=== PATIENT | female | born 1950 | race Caucasian/White ===

== ENCOUNTER 2017-09-21 11:32 | Emergency (ER) | payer MEDICARE, OTHER ==
[~2017-09-21] VITALS: Ht 154.9 cm; Wt 85.7 kg
[~2017-09-21 11:32] MED LIST changes: -Bactrim 400-801 EACH PO; -CEPH500 PO
[2017-09-21 12:48] LABS: BASOPHILS ABSOLUTE AUTO 0.01 K/mm3 (0.00-0.23); BASOPHILS PERCENT AUTO 0 % (0-2); EOSINOPHILS PERCENT AUTO 0 % (0-6); Hematocrit 43.7 % (33.0-51.0); Hemoglobin 15.1 g/dL (11.5-16.0); IMMATURE GRAN ABSOLUTE AUTO 0.02 K/mm3 (0.00-0.10); IMMATURE GRAN PERCENT AUTO 0 % (0-1); LYMPHOCYTES ABSOLUTE AUTO 1.12 K/mm3 (0.84-5.20); LYMPHOCYTES PERCENT AUTO 17 % (21-46); MONOCYTES ABSOLUTE AUTO 0.46 K/mm3 (0.16-1.47); MONOCYTES PERCENT AUTO 7 % (4-13); Mean Corpuscular HGB 29.6 pg (26.0-34.0); Mean Corpuscular HGB Conc 34.6 g/dL (31.5-36.5); Mean Corpuscular Volume 86 fL (80-100); Mean Platelet Volume 9.8 fL (9.1-12.4); NEUTROPHILS ABSOLUTE AUTO 5.07 K/mm3 (1.96-9.15); NEUTROPHILS PERCENT AUTO 76 % (41-73); Platelet Count 180 K/mm3 (150-400); RDW Coefficient Variation 11.9 % (11.7-14.2); RDW Standard Deviation 37.2 fL (35.1-46.3); White Blood Cell Count 6.68 K/mm3 (4.00-11.30)
[2017-09-21 13:01] LABS: Anion Gap 4 mmol/L (6-16); Blood Urea Nitrogen 8 mg/dL (8-24); CO2, Blood 28 mmol/L (21-32); Calcium, Blood 8.8 mg/dL (8.5-10.1); Chloride, Blood 110 mmol/L (98-108); Glomerular Filtration Rate >60 (60-); Glucose, Blood 107 mg/dL (70-99); Potassium, Blood 3.6 mmol/L (3.5-5.5); Sodium, Blood 142 mmol/L (136-145)
[2017-09-21] MEDS ORDERED: Bactrim 400-801 EACH PO (14:27)
[2017-09-21] MEDS ORDERED: CEPH500 PO (14:27)
== END 2017-09-21 14:37 | disposition home or self-care (01) ==
LOC: ER 11:32
PROVIDERS: Emergency Medicine
DX: T85.79XA Infection and inflammatory reaction due to other internal prosthetic devices, implants and grafts, initial encounter (principal); L08.89 Other specified local infections of the skin and subcutaneous tissue; Z79.899 Other long term (current) drug therapy
CPT/HCPCS: 36415; 70480; 80048; 85025; 85651; 99284

== ENCOUNTER → 2017-09-21 | Outpatient (CLI) | payer MEDICARE, OTHER ==
[~2017-09-21] MED LIST: AMIT25 PO; Bactrim 400-801 EACH PO; CALCIUM; CEPH500 PO; CETI10 PO; ESTR1 PO; FLUT.05NI; LISHYD2012 PO; MULVITA PO; SIME40L PO; VIT D
== END ==
LOC: LAB SHORT 13:16 → LAB EV 13:16
DX: B99.9 Unspecified infectious disease (principal)
CPT/HCPCS: 87070; 87205

== ENCOUNTER → 2018-06-22 | Outpatient (CLI) | payer MEDICARE, OTHER ==
[~2018-06-22] MED LIST changes: +Bactrim 400-801 EACH PO; +CEPH500 PO
== END ==
LOC: LAB SHORT 17:54 → LAB EV 17:54
DX: N39.0 Urinary tract infection, site not specified (principal)
CPT/HCPCS: 87077; 87086; 87186

== ENCOUNTER 2018-12-25 09:39 | Day surgery (SDC) | payer MEDICARE, OTHER ==
[~2018-12-25] VITALS: Ht 154.9 cm; Wt 92.5 kg
[~2018-12-25 09:39] MED LIST changes: +ATOR20 PO; +Benicar Hct 201 EACH PO; +DONE10 PO; +SOLI5 PO; +VENLAFAXINE HCL75 MG PO
--- NOTE | 2018-12-25 10:10 | NUR ---
History, Chart, Medications and Allergies reviewed before start of procedure. Patient confirms NPO status and agrees with scheduled surgery. , Mukesh Jimenez, at bedside. Patient is a poor historian. answers most questions for patient. to drive home.
--- NOTE | 2018-12-25 10:12 | NUR ---
reports patient taking all of colon prep with clear results.
--- NOTE | 2018-12-25 10:49 | NUR ---
12/25/18 1049 Bessie Golden History, Chart, Medications and Allergies reviewed before start of procedure.PATIENT DETERMINED TO BE ASA APPROPRIATE FOR PROPOFOL SEDATION PRIOR TO START OF PROCEDURE BY .MONITOR INTACT WITH CONTINUOUS PULSE OXIMETRY AND INTERMITTENT BP.3-LEAD EKG REVIEWED WITH PHYSICIAN PRIOR TO START OF PROCEDURE.O2 VIA N/C INTACT THROUGHOUT SEDATION/PROCEDURE.
--- NOTE | 2018-12-25 11:46 | NUR ---
Patient up to Ambulate independently. Gait steady. Discharge instructions reviewed with patient. Patient verbalizes understanding. Copy given to patient to take home. Patient States Post-Procedure ride home has been arranged. Discharged via wheelchair to private car for ride home.
== END 2018-12-25 22:41 | disposition home or self-care (01) ==
LOC: ORSCMMR 09:39 → ORD 10:30 → ORSCMMR 22:41
PROVIDERS: Internal Medicine Gastroenterology
PROC: 0DBL8ZX Excision of Transverse Colon, Via Natural or Artificial Opening Endoscopic, Diagnostic (ICD-10-PCS; principal; 2018-12-25 10:30)
PROC: 0DBP8ZX Excision of Rectum, Via Natural or Artificial Opening Endoscopic, Diagnostic (ICD-10-PCS; principal; 2018-12-25 10:30)
PROC: 0DBH8ZX Excision of Cecum, Via Natural or Artificial Opening Endoscopic, Diagnostic (ICD-10-PCS; principal; 2018-12-25 10:30)
PROC: 0DBK8ZX Excision of Ascending Colon, Via Natural or Artificial Opening Endoscopic, Diagnostic (ICD-10-PCS; principal; 2018-12-25 10:30)
DX: Z12.11 Encounter for screening for malignant neoplasm of colon (principal); D12.2 Benign neoplasm of ascending colon; D12.0 Benign neoplasm of cecum; D12.3 Benign neoplasm of transverse colon; D12.8 Benign neoplasm of rectum; K63.89 Other specified diseases of intestine; I10 Essential (primary) hypertension; E78.00 Pure hypercholesterolemia, unspecified; F03.90 Unspecified dementia, unspecified severity, without behavioral disturbance, psychotic disturbance, mood disturbance, and anxiety; Z79.899 Other long term (current) drug therapy
CPT/HCPCS: 88305; J2704; J7120

== ENCOUNTER → 2020-02-05 | Outpatient (CLI) | payer MEDICARE, OTHER | LOC: LAB SHORT 18:07 → LAB EV 18:07 | DX: N39.0 Urinary tract infection, site not specified (principal) | CPT/HCPCS: 87077; 87086; 87186 ==

== ENCOUNTER 2020-09-25 16:23 | Emergency (ER) | payer MEDICARE ==
[~2020-09-25] VITALS: Ht 154.9 cm; Wt 85.7 kg
[2020-09-25 17:19] LABS: BASOPHILS PERCENT AUTO 0 % (0-2); EOSINOPHILS ABSOLUTE AUTO 0.02 K/mm3 (0.00-0.68); EOSINOPHILS PERCENT AUTO 0 % (0-6); Hemoglobin 15.3 g/dL (11.5-16.0); IMMATURE GRAN ABSOLUTE AUTO 0.01 K/mm3 (0.00-0.10); IMMATURE GRAN PERCENT AUTO 0 % (0-1); LYMPHOCYTES ABSOLUTE AUTO 0.91 K/mm3 (0.84-5.20); LYMPHOCYTES PERCENT AUTO 16 % (21-46); MONOCYTES ABSOLUTE AUTO 0.56 K/mm3 (0.16-1.47); MONOCYTES PERCENT AUTO 10 % (4-13); Mean Corpuscular HGB 30.5 pg (26.0-34.0); Mean Corpuscular Volume 90 fL (80-100); Mean Platelet Volume 10.3 fL (9.1-12.4); NEUTROPHILS ABSOLUTE AUTO 4.13 K/mm3 (1.96-9.15); NEUTROPHILS PERCENT AUTO 73 % (41-73); Platelet Count 153 K/mm3 (150-400); RDW Coefficient Variation 12.5 % (11.7-14.2); RDW Standard Deviation 40.9 fL (35.1-46.3); Red Blood Cell Count 5.02 M/mm3 (3.80-5.20); White Blood Cell Count 5.63 K/mm3 (4.00-11.30)
[2020-09-25 17:56] LABS: Albumin, Blood 4.2 g/dL (3.4-5.0); Albumin/Globulin Ratio 1.5 (0.8-1.8); Bilirubin, Total 0.7 mg/dL (0.1-1.0); Bun/Creatinine Ratio 16.1 (12.0-20.0); Calcium, Blood 9.6 mg/dL (8.5-10.1); Creatinine, Blood 1.18 mg/dL (0.40-1.00); Globulin, Blood 2.8 g/dL (2.2-4.0)
[2020-09-25] MEDS ORDERED: CEPHALEXIN500 M2 PO (19:54)
== END 2020-09-25 20:07 | disposition home or self-care (01) ==
LOC: ER 16:23
PROVIDERS: Physician Assistant
DX: L03.811 Cellulitis of head [any part, except face] (principal); I10 Essential (primary) hypertension; E78.00 Pure hypercholesterolemia, unspecified; Z79.899 Other long term (current) drug therapy
CPT/HCPCS: 36415; 70487; 80053; 85025; 99283-25; A9270-GY; Q9967

== ENCOUNTER → 2020-12-03 | Outpatient (CLI) | payer MEDICARE ==
[~2020-12-03] MED LIST changes: +CEPHALEXIN500 M2 PO
[2020-12-03 14:43] LABS: Appearance, Urine Clear (Clear); Bacteria Not Seen /hpf; Bilirubin, Urine Neg (Neg); Blood, Urine Trace (Neg); Color, Urine Yellow (P-Yellow); Glucose Qualitative, Urine Neg (Normal); Ketones, Urine Neg (Neg); Leukocyte Esterase, Urine Trace (Neg); Nitrite, Urine Neg (Neg); Protein, Urine Neg (Neg); Red Blood Cells, Urine Rare /hpf (0-2); Squamous Epithelial Cells Few /hpf (Few); Urobilinogen, Urine NORM (Normal); White Blood Cells, Urine Rare /hpf (0-5)
== END ==
LOC: LAB 14:24 → LAB SHORT 14:24
PROVIDERS: Physician Assistant
DX: R10.9 Unspecified abdominal pain (principal)
CPT/HCPCS: 81001; 87077; 87086; 87186

== ENCOUNTER → 2020-12-05 | Outpatient (CLI) | payer MEDICARE ==
[2020-12-05 13:46] LABS: Microalbumin, Urine Quant. 9.21 mg/L (0.000-20.000); Protein, Urine Quantitative 6.3 mg/dL (0.0-11.9)
== END | disposition home or self-care (01) ==
LOC: LAB SHORT 11:15 → LAB 11:15 → LAB FUT 11-27 08:45
PROVIDERS: Internal Medicine Nephrology
DX: N18.30 Chronic kidney disease, stage 3 unspecified (principal); D63.1 Anemia in chronic kidney disease; N25.81 Secondary hyperparathyroidism of renal origin; E55.9 Vitamin D deficiency, unspecified; E78.00 Pure hypercholesterolemia, unspecified; G60.9 Hereditary and idiopathic neuropathy, unspecified; R76.9 Abnormal immunological finding in serum, unspecified; R94.5 Abnormal results of liver function studies
CPT/HCPCS: 81050; 82043; 82570; 84156

== ENCOUNTER 2022-05-19 15:51 | Observation (INO) | payer MEDICARE, OTHER ==
[~2022-05-19] VITALS: Ht 162.6 cm; Wt 90.5 kg
[2022-05-19 17:00] LABS: BASOPHILS ABSOLUTE AUTO 0.02 K/mm3 (0.00-0.23); BASOPHILS PERCENT AUTO 0 % (0-2); EOSINOPHILS PERCENT AUTO 0 % (0-6); Hematocrit 45.1 % (33.0-51.0); Hemoglobin 15.7 g/dL (11.5-16.0); IMMATURE GRAN ABSOLUTE AUTO 0.06 K/mm3 (0.00-0.10); IMMATURE GRAN PERCENT AUTO 1 % (0-1); LYMPHOCYTES ABSOLUTE AUTO 0.18 K/mm3 (0.84-5.20); LYMPHOCYTES PERCENT AUTO 3 % (21-46); MONOCYTES ABSOLUTE AUTO 0.04 K/mm3 (0.16-1.47); MONOCYTES PERCENT AUTO 1 % (4-13); Mean Corpuscular HGB 30.9 pg (26.0-34.0); Mean Corpuscular HGB Conc 34.8 g/dL (31.5-36.5); Mean Corpuscular Volume 89 fL (80-100); Mean Platelet Volume 10.5 fL (9.1-12.4); NEUTROPHILS ABSOLUTE AUTO 6.85 K/mm3 (1.96-9.15); NEUTROPHILS PERCENT AUTO 96 % (41-73); Platelet Count 113 K/mm3 (150-400); RDW Coefficient Variation 12.3 % (11.7-14.2); RDW Standard Deviation 39.8 fL (35.1-46.3); Red Blood Cell Count 5.08 M/mm3 (3.80-5.20); White Blood Cell Count 7.15 K/mm3 (4.00-11.30)
[2022-05-19 17:18] LABS: Albumin/Globulin Ratio 1.4 (0.8-1.8); Bilirubin, Total 1.3 mg/dL (0.1-1.0); Bun/Creatinine Ratio 17.2 (12.0-20.0); Calcium, Blood 10.2 mg/dL (8.5-10.1); Creatinine, Blood 1.28 mg/dL (0.40-1.00); Globulin, Blood 2.9 g/dL (2.2-4.0); Potassium, Blood 3.6 mmol/L (3.5-5.5); Total Protein, Blood 6.9 g/dL (6.4-8.2)
[2022-05-19 23:15] LABS: Source, Urine Clean Catch
[2022-05-19 23:30] LABS: Bilirubin, Urine Neg (Neg); Blood, Urine 5+ (Neg); Color, Urine Yellow (P-Yellow); Glucose Qualitative, Urine Neg (Neg); Ketones, Urine Neg (Neg); Leukocyte Esterase, Urine 1+ (Neg); Nitrite, Urine Pos (Neg); Protein, Urine 1+ (Neg); Urobilinogen, Urine NORM (Normal)
[2022-05-19 23:52] LABS: Appearance, Urine Hazy (Clear)
[2022-05-19 23:54] LABS: Bacteria Many /hpf; Squamous Epithelial Cells Mod /hpf (Few)
[2022-05-20 05:42] LABS: Hematocrit 38.4 % (33.0-51.0); Hemoglobin 13.1 g/dL (11.5-16.0); Mean Corpuscular HGB 30.6 pg (26.0-34.0); Mean Corpuscular HGB Conc 34.1 g/dL (31.5-36.5); Mean Corpuscular Volume 90 fL (80-100); Mean Platelet Volume 10.1 fL (9.1-12.4); Platelet Count 90 K/mm3 (150-400); RDW Coefficient Variation 12.6 % (11.7-14.2); RDW Standard Deviation 41.1 fL (35.1-46.3); Red Blood Cell Count 4.28 M/mm3 (3.80-5.20); White Blood Cell Count 18.62 K/mm3 (4.00-11.30)
[2022-05-20 06:10] LABS: Albumin, Blood 3.2 g/dL (3.4-5.0); Albumin/Globulin Ratio 1.2 (0.8-1.8); Bilirubin, Total 1.2 mg/dL (0.1-1.0); Bun/Creatinine Ratio 22.3 (12.0-20.0); Calcium, Blood 8.6 mg/dL (8.5-10.1); Creatinine, Blood 1.12 mg/dL (0.40-1.00); Globulin, Blood 2.6 g/dL (2.2-4.0); Potassium, Blood 3.8 mmol/L (3.5-5.5); Total Protein, Blood 5.8 g/dL (6.4-8.2)
--- NOTE | 2022-05-20 07:28 | NUR ---
Rn summary: Patient is alert and oriented to self, , thought she was in a hospital in [place], did not know the president, or the month. Pt follows commands and is very pleasant. Patient is NPO at this time. Pt has been up to the BR x1. IV fluids as ordered. Pt has been resting well since admission. Bed alarm is on, call light explained and in reach.
[2022-05-20] MEDS ORDERED: Aspir 8181 MG PO (18:14)
[2022-05-20] MEDS ORDERED: MYRBETRIQ25 MG PO (18:14)
[2022-05-20] MEDS ORDERED: OLMESARTAN PO (18:17)
[2022-05-20] MEDS ORDERED: HYDROCHLOROTHIAZIDE PO (18:17)
--- NOTE | 2022-05-20 18:44 | NUR ---
SHIFT SUMMARY PATIENT MEDICATED X1 FOR ABDOMINAL PAIN, DENIES NAUSEA, AND SHORTNESS OF BREATH. NPO. MRCP/MRI PENDING UNTIL RECORDS OF COCHLEAR IMPLANT RECEIVED FROM [facility]. RECORD REQUEST FAXED TODAY. UP SBA TO BATHROOM. IMPULSIVE AND FORGETFUL AT TIMES. BED ALARM ON. FAMILY AT BEDSIDE MOST OF DAY. PLEASANT AND COOPERATIVE WITH CARE.
[2022-05-21 05:06] LABS: BASOPHILS ABSOLUTE AUTO 0.01 K/mm3 (0.00-0.23); BASOPHILS PERCENT AUTO 0 % (0-2); EOSINOPHILS PERCENT AUTO 0 % (0-6); Hematocrit 35.8 % (33.0-51.0); Hemoglobin 12.4 g/dL (11.5-16.0); IMMATURE GRAN ABSOLUTE AUTO 0.23 K/mm3 (0.00-0.10); IMMATURE GRAN PERCENT AUTO 2 % (0-1); LYMPHOCYTES ABSOLUTE AUTO 0.63 K/mm3 (0.84-5.20); LYMPHOCYTES PERCENT AUTO 6 % (21-46); MONOCYTES ABSOLUTE AUTO 0.55 K/mm3 (0.16-1.47); MONOCYTES PERCENT AUTO 5 % (4-13); Mean Corpuscular HGB 30.9 pg (26.0-34.0); Mean Corpuscular HGB Conc 34.6 g/dL (31.5-36.5); Mean Corpuscular Volume 89 fL (80-100); Mean Platelet Volume 10.4 fL (9.1-12.4); NEUTROPHILS ABSOLUTE AUTO 8.85 K/mm3 (1.96-9.15); NEUTROPHILS PERCENT AUTO 86 % (41-73); Platelet Count 69 K/mm3 (150-400); RDW Coefficient Variation 12.5 % (11.7-14.2); RDW Standard Deviation 41.1 fL (35.1-46.3); Red Blood Cell Count 4.01 M/mm3 (3.80-5.20); White Blood Cell Count 10.27 K/mm3 (4.00-11.30)
--- NOTE | 2022-05-21 05:09 | NUR ---
Shift Summary No C/O abdominal pain, when asked pt said pain was there but a mild 3/10. No N/V. Pt is NPO pending surgical consult for today. Suspected obstruction of common bile duct. Pt is very forgetful, frequently forgetting who I am and where she is. While awake she is very cognizant and converses well, but she does soon forget almost everything shortly after a conversation. During the night she awoke and took out her left forearm IV thinking it was a bandage. Pt is a strong ambulator and walks to the bathroom. She does not call appropriatly because she forgets where she is. Bed alarm on. Pt started recieving IV Zosyn tonight, tolerated well. VSS, no acute events, pleasant and cooperative with care.
[2022-05-21 05:24] LABS: Albumin, Blood 2.9 g/dL (3.4-5.0); Albumin/Globulin Ratio 1.1 (0.8-1.8); Bilirubin, Total 1.8 mg/dL (0.1-1.0); Bun/Creatinine Ratio 19.3 (12.0-20.0); Calcium, Blood 8.1 mg/dL (8.5-10.1); Creatinine, Blood 0.99 mg/dL (0.40-1.00); Globulin, Blood 2.7 g/dL (2.2-4.0); Potassium, Blood 3.4 mmol/L (3.5-5.5); Total Protein, Blood 5.6 g/dL (6.4-8.2)
--- NOTE | 2022-05-21 18:54 | NUR ---
SHIFT SUMMARY: PT A&O X3, FORGETFUL, EASILY OREINTATED. PT NPO RECEVING NS 75ML/HR. PT HAD MRI COMPLETED. PT CLEAR LIQUID DIET AND ADVANCE TOLERATED. PT AMBULATES TO THE BATHROOM SBA WITH DIRECTION FOR SAFETY. PT FAMILY AT BEDSIDE THROUGHOUT THE SHIFT. PT HAD NO COMPLAINTS OF PAIN THROUGHOUT THE SHIFT JUST FREQUENT URINATION. PT IN BED WITH CALL LIGHT WITHIN REACH AND BED ALARM SET.
[2022-05-22 05:51] LABS: BASOPHILS ABSOLUTE AUTO 0.01 K/mm3 (0.00-0.23); BASOPHILS PERCENT AUTO 0 % (0-2); EOSINOPHILS PERCENT AUTO 0 % (0-6); Hematocrit 33.9 % (33.0-51.0); Hemoglobin 11.9 g/dL (11.5-16.0); IMMATURE GRAN ABSOLUTE AUTO 0.11 K/mm3 (0.00-0.10); IMMATURE GRAN PERCENT AUTO 1 % (0-1); LYMPHOCYTES ABSOLUTE AUTO 0.67 K/mm3 (0.84-5.20); LYMPHOCYTES PERCENT AUTO 8 % (21-46); MONOCYTES ABSOLUTE AUTO 0.46 K/mm3 (0.16-1.47); MONOCYTES PERCENT AUTO 5 % (4-13); Mean Corpuscular HGB 30.7 pg (26.0-34.0); Mean Corpuscular HGB Conc 35.1 g/dL (31.5-36.5); Mean Corpuscular Volume 87 fL (80-100); Mean Platelet Volume 10.1 fL (9.1-12.4); NEUTROPHILS PERCENT AUTO 86 % (41-73); Platelet Count 74 K/mm3 (150-400); RDW Coefficient Variation 12.3 % (11.7-14.2); RDW Standard Deviation 39.4 fL (35.1-46.3); Red Blood Cell Count 3.88 M/mm3 (3.80-5.20); White Blood Cell Count 8.95 K/mm3 (4.00-11.30)
[2022-05-22 06:17] LABS: Albumin, Blood 2.7 g/dL (3.4-5.0); Albumin/Globulin Ratio 0.9 (0.8-1.8); Bilirubin, Total 1.4 mg/dL (0.1-1.0); Bun/Creatinine Ratio 11.9 (12.0-20.0); Calcium, Blood 8.3 mg/dL (8.5-10.1); Creatinine, Blood 0.93 mg/dL (0.40-1.00); Potassium, Blood 3.2 mmol/L (3.5-5.5); Total Protein, Blood 5.7 g/dL (6.4-8.2)
--- NOTE | 2022-05-22 07:47 | NUR ---
Shift Summary Pt extremely forgetful upon waking, forgetting where she is and why she is here. Removed her tele box multiple times, called hospitalist and Dr. Paredes D/Elvira tele. Pt removed her IV and a new one was placed in her LFA. Rcvd IV Zosyn and NS at 75. Gave 25 mg PRN Seroquil which did not help, the next time pt awoke to use the bathroom she was more confused, angry and irratible. VSS, no acute events.
[2022-05-22] MEDS ORDERED: OLMESARTAN-HCT1 EAC3 PO (11:43)
[2022-05-22] MEDS ORDERED: Cefpodoxime Pr100 MG PO (13:13)
--- NOTE | 2022-05-22 17:07 | NUR ---
DISCHARGE NOTE: PT A&O X3, PLEASANTLY CONFUSED AND FOLLOWS DIRECTIONS. PT FAMILY EDUCATED ON ABX MEDICATION AND FOLLOWING UP WITH PCP. PT FAMILY AT BEDSIDE AND ABLE TO TRANSPORT PT HOME. PT DRESSED BY ROSA MARIA PEÑA. PT ESCORTED BY [employer]ACHINE OPERATOR VIA WC TO LOBBY WITH FAMILY.
== END 2022-05-22 14:15 | disposition home or self-care (01) ==
LOC: ER 15:51 → ERHOLD 15:52 → MEDS 15:52
PROVIDERS: Family Medicine; Physician Assistant; ADMIT Internal Medicine
DX: R10.9 Unspecified abdominal pain (principal); N39.0 Urinary tract infection, site not specified; B96.1 Klebsiella pneumoniae [K. pneumoniae] as the cause of diseases classified elsewhere; K83.8 Other specified diseases of biliary tract; K57.10 Diverticulosis of small intestine without perforation or abscess without bleeding; N18.30 Chronic kidney disease, stage 3 unspecified; E78.00 Pure hypercholesterolemia, unspecified; N39.41 Urge incontinence; M17.0 Bilateral primary osteoarthritis of knee; M85.80 Other specified disorders of bone density and structure, unspecified site; F32.A Depression, unspecified; I12.9 Hypertensive chronic kidney disease with stage 1 through stage 4 chronic kidney disease, or unspecified chronic kidney disease; F03.90 Unspecified dementia, unspecified severity, without behavioral disturbance, psychotic disturbance, mood disturbance, and anxiety; E87.20 Acidosis, unspecified; D69.6 Thrombocytopenia, unspecified; N17.9 Acute kidney failure, unspecified; Z96.651 Presence of right artificial knee joint; Z72.0 Tobacco use
CPT/HCPCS: 36415; 36416; 74177; 74181; 80053; 81001; 82140; 83605; 83690; 85025; 85027; 87077; 87086; 87186; 96361; 96365; 96366; 96372; 96375; 96376; A9270; G0378; J1650; J2543; J3010; J7030; Q9967

== ENCOUNTER 2022-12-17 06:38 | Day surgery (SDC) | payer MEDICARE, OTHER ==
[~2022-12-17] VITALS: Ht 157.5 cm; Wt 87.3 kg
[~2022-12-17 06:38] MED LIST changes: +Aspir 8181 MG PO; +Cefpodoxime Pr100 MG PO; +HYDROCHLOROTHIAZIDE PO; +MYRBETRIQ25 MG PO; +OLMESARTAN PO; +OLMESARTAN-HCT1 EAC3 PO; +VITAMIN D310 MC4 PO
[2022-12-17 08:24] LABS: BASOPHILS ABSOLUTE AUTO 0.01 K/mm3 (0.00-0.23); BASOPHILS PERCENT AUTO 0 % (0-2); EOSINOPHILS ABSOLUTE AUTO 0.01 K/mm3 (0.00-0.68); EOSINOPHILS PERCENT AUTO 0 % (0-6); Hematocrit 46.7 % (33.0-51.0); Hemoglobin 16.1 g/dL (11.5-16.0); IMMATURE GRAN ABSOLUTE AUTO 0.02 K/mm3 (0.00-0.10); IMMATURE GRAN PERCENT AUTO 0 % (0-1); LYMPHOCYTES ABSOLUTE AUTO 0.88 K/mm3 (0.84-5.20); LYMPHOCYTES PERCENT AUTO 13 % (21-46); MONOCYTES ABSOLUTE AUTO 0.53 K/mm3 (0.16-1.47); MONOCYTES PERCENT AUTO 8 % (4-13); Mean Corpuscular HGB 30.7 pg (26.0-34.0); Mean Corpuscular HGB Conc 34.5 g/dL (31.5-36.5); Mean Corpuscular Volume 89 fL (80-100); Mean Platelet Volume 9.8 fL (9.1-12.4); NEUTROPHILS ABSOLUTE AUTO 5.17 K/mm3 (1.96-9.15); NEUTROPHILS PERCENT AUTO 78 % (41-73); Platelet Count 158 K/mm3 (150-400); RDW Coefficient Variation 12.5 % (11.7-14.2); RDW Standard Deviation 41.1 fL (35.1-46.3); Red Blood Cell Count 5.24 M/mm3 (3.80-5.20); White Blood Cell Count 6.62 K/mm3 (4.00-11.30)
--- NOTE | 2022-12-17 08:40 | NUR ---
12/17/[address] AWARE OF PT C/O CHEST PAIN OFF /ON OVER PAST FEW DAYS. EGC GIVEN AND DR BENITES AND DR OCHOA SAID OK TO PROCEDE. NO NEW ORDERS GIVEN.
[2022-12-17 10:00] VITALS: BP 113/60
--- NOTE | 2022-12-17 10:39 | NUR ---
12/17/22 1039 BEATRIZ BRUCE PT USING BATHROOOM PRIOR TO DC PT AWAKE and ABLE TO MOVE W/O ISSUES
== END 2022-12-17 10:39 | disposition home or self-care (01) ==
LOC: ORSCSDS 06:38
PROVIDERS: Surgery
PROC: 0HBT0ZX Excision of Right Breast, Open Approach, Diagnostic (ICD-10-PCS; principal; 2022-12-17 08:45)
DX: C50.411 Malignant neoplasm of upper-outer quadrant of right female breast (principal); I25.10 Atherosclerotic heart disease of native coronary artery without angina pectoris; E78.5 Hyperlipidemia, unspecified; G47.33 Obstructive sleep apnea (adult) (pediatric); I12.9 Hypertensive chronic kidney disease with stage 1 through stage 4 chronic kidney disease, or unspecified chronic kidney disease; N18.30 Chronic kidney disease, stage 3 unspecified; E03.9 Hypothyroidism, unspecified; F03.B0 Unspecified dementia, moderate, without behavioral disturbance, psychotic disturbance, mood disturbance, and anxiety; Z79.899 Other long term (current) drug therapy; Z79.82 Long term (current) use of aspirin
CPT/HCPCS: 85025; 88307; J0690; J1100; J2371; J2405; J2704; J2795; J3010; J7120; Q9968

== ENCOUNTER → 2023-03-30 | Outpatient (CLI) | payer MEDICARE, OTHER | END | disposition home or self-care (01) | LOC: LAB 14:00 → LAB SHORT 14:00 | DX: L03.90 Cellulitis, unspecified (principal) | CPT/HCPCS: 87070; 87205 ==

== ENCOUNTER 2023-10-04 19:27 | Emergency (ER) | payer MEDICARE, OTHER ==
[~2023-10-04] VITALS: Ht 160 cm; Wt 85.3 kg
[2023-10-04 20:24] LABS: BASOPHILS ABSOLUTE AUTO 0.01 K/mm3 (0.00-0.23); BASOPHILS PERCENT AUTO 0 % (0-2); EOSINOPHILS ABSOLUTE AUTO 0.01 K/mm3 (0.00-0.68); EOSINOPHILS PERCENT AUTO 0 % (0-6); Hematocrit 41.9 % (33.0-51.0); Hemoglobin 14.5 g/dL (11.5-16.0); IMMATURE GRAN ABSOLUTE AUTO 0.03 K/mm3 (0.00-0.10); IMMATURE GRAN PERCENT AUTO 0 % (0-1); LYMPHOCYTES ABSOLUTE AUTO 0.98 K/mm3 (0.84-5.20); LYMPHOCYTES PERCENT AUTO 9 % (21-46); MONOCYTES ABSOLUTE AUTO 0.56 K/mm3 (0.16-1.47); MONOCYTES PERCENT AUTO 5 % (4-13); Mean Corpuscular HGB 29.7 pg (26.0-34.0); Mean Corpuscular HGB Conc 34.6 g/dL (31.5-36.5); Mean Corpuscular Volume 86 fL (80-100); Mean Platelet Volume 9.8 fL (9.1-12.4); NEUTROPHILS ABSOLUTE AUTO 9.34 K/mm3 (1.96-9.15); NEUTROPHILS PERCENT AUTO 85 % (41-73); Platelet Count 209 K/mm3 (150-400); RDW Coefficient Variation 11.9 % (11.7-14.2); RDW Standard Deviation 37.6 fL (35.1-46.3); Red Blood Cell Count 4.88 M/mm3 (3.80-5.20); White Blood Cell Count 10.93 K/mm3 (4.00-11.30)
[2023-10-04 20:42] LABS: Albumin, Blood 3.9 g/dL (3.4-5.0); Albumin/Globulin Ratio 1.1 (0.8-1.8); Bilirubin, Total 0.9 mg/dL (0.1-1.0); Calcium, Blood 10.3 mg/dL (8.5-10.1); Creatinine, Blood 1.23 mg/dL (0.40-1.00); Globulin, Blood 3.6 g/dL (2.2-4.0); Potassium, Blood 3.9 mmol/L (3.5-5.5); Total Protein, Blood 7.5 g/dL (6.4-8.2)
[2023-10-04] MEDS ORDERED: FAMO20 PO (23:01)
[2023-10-05 00:30] VITALS: BP 131/97
== END 2023-10-05 00:44 | disposition home or self-care (01) ==
LOC: ER 19:27
PROVIDERS: Nurse Practitioner
DX: R07.89 Other chest pain (principal); F03.90 Unspecified dementia, unspecified severity, without behavioral disturbance, psychotic disturbance, mood disturbance, and anxiety; I10 Essential (primary) hypertension; E78.00 Pure hypercholesterolemia, unspecified; Z91.018 Allergy to other foods; Z79.82 Long term (current) use of aspirin; Z79.899 Other long term (current) drug therapy
CPT/HCPCS: 71046; 80053; 84484; 85025; 93005; 93010; 99285-25

== ENCOUNTER → 2024-06-30 | Outpatient (CLI) | payer MEDICARE, OTHER ==
[~2024-06-30] MED LIST changes: +FAMO20 PO
== END ==
LOC: LAB SHORT 14:31 → LAB 14:31
DX: L03.811 Cellulitis of head [any part, except face] (principal)
CPT/HCPCS: 87070; 87075; 87205